=== PATIENT | male | born 1955 | race Caucasian/White ===

== ENCOUNTER 2019-01-08 11:58 | Outpatient (CLI) | payer MEDICARE, OTHER ==
[2019-01-08 12:41] LABS: CALCIUM, SERUM 8.6 mg/dL (8.5-10.1); CREATININE 1.1 mg/dL (0.6-1.3); POTASSIUM 4.7 mmol/L (3.5-5.1)
[2019-01-08] MEDS ORDERED: METOPROLOL TARTRATE INJ 5 MG/5 ML AMPUL IVP ONE (13:00)
[2019-01-08] MEDS ORDERED: IV NS 0.9% 500 ML IV ONE (13:00)
[2019-01-08] MEDS ORDERED: NITROGLYCERIN 0.4 MG/TAB BOTTLE SL ONE (13:00)
--- NOTE | 2019-01-08 14:00 | NUR ---
RN NOTE 1300: Patient is A/Ox4, [place] speaking. Accompanied by daughter. Signed consent for CTA. Aware for the procedure, verbalized understanding. Placed PIV g18 to LAC. Please see MAR and CTA flowsheet for meds and VS. 1320: Metoprolol 5 mg IVP given x1. 1330: Nitro 0.4mg SL tab given x1. 1340: Removed LAC PIV and armband. 1355: Patient VSS, no bleeding on LAC, verbalized understanding re: the care after, aware not to have PO DM meds for 48 hours and encouraged to increase oral fluids intake for few hours, patient and daughter verbalized understanding. Addendum: 01/08/19 at 1533 by JON LANDEROS RN Per patient and daughter, patient just have food prior the procedure that's why he has high BS, and verbalized they will check the BS again at home later, patient has his own insulin regimen.
[2019-01-08 15:13] VITALS: BP 135/68
== END 2019-01-08 23:59 | disposition home or self-care (01) ==
LOC: CT 11:58
PROVIDERS: ATTEND Internal Medicine Interventional Cardiology
DX: J43.2 Centrilobular emphysema (principal); J98.09 Other diseases of bronchus, not elsewhere classified; I25.10 Atherosclerotic heart disease of native coronary artery without angina pectoris
CPT/HCPCS: 36415; 75574; 80048-TC

== ENCOUNTER 2019-01-09 10:00 | Outpatient (CLI) | payer MEDICARE, OTHER | END 2019-01-09 23:59 | disposition home or self-care (01) | LOC: US 10:00 | PROVIDERS: ATTEND Internal Medicine Interventional Cardiology | DX: I65.23 Occlusion and stenosis of bilateral carotid arteries (principal) | CPT/HCPCS: 76770-TC; 93880-TC ==